=== PATIENT | female | born 1960 | race African-American/Black ===

== ENCOUNTER 2016-11-05 13:45 | Emergency (ER) | payer MEDICAID ==
[~2016-11-05] VITALS: Ht 162.6 cm; Wt 45.0 kg
[~2016-11-05 13:45] MED LIST: AMLO10TA80; LIDOCAINE HCL 1% 20ML VIAL (Pyxis) INJ ONE; LISI-604; MAPAP; SODIUM BICARBONATE 4.2% 5 MEQ/10 ML DISP.SYRIN IV ONE
[2016-11-05] MEDS ORDERED: FOLI-43 PO (14:03)
[2016-11-05] MEDS ORDERED: LACT10SO6 MT (14:03)
[2016-11-05] MEDS ORDERED: VITAMIN B 1 (14:03)
[2016-11-05] MEDS ORDERED: PENTOXIFYLLINE (14:03)
[2016-11-05 16:08] LABS: BASOPHILS % 0.8 % (0.0-2.0); EOSINOPHILS % 0.1 % (0.0-5.0); HEMATOCRIT. 33.2 % (36.0-48.0); HEMOGLOBIN. 10.9 g/dL (12.0-16.0); MEAN CORPUSCULAR HEMOGLOBIN 30.4 pg (28.0-32.0); MEAN CORPUSCULAR HGB CONC 32.8 g/dL (31.0-37.0); MEAN CORPUSCULAR VOLUME 92.8 fL (81.0-99.0); MEAN PLATELET VOLUME 8.6 fl (7.4-10.4); NEUTROPHILS % 75.1 % (40.0-76.0); PLATELET 160 x1000/uL (130-400); RED BLOOD CELL COUNT 3.58 mill/uL (4.2-5.4); RED CELL DISTRIBUTION WIDTH 15.2 % (11.6-14.6)
[2016-11-05 16:13] LABS: CHLORIDE 102 mEq/L (98-107); INDEX HEMOLYSI 1 (1-3); INDEX ICTERIC 2 (1-4); INDEX LIPEMIC 1 (1-3)
[2016-11-05 16:16] LABS: INR 1.8; PROTHROMBIN TIME 18.7 sec
[2016-11-05 16:21] LABS: ALANINE AMINOTRANSFERASE 25 IU/L (13-61); ALBUMIN 2.3 g/dL (3.4-5.0); ANION GAP 13; CALCIUM 8.4 mg/dL (8.5-10.1); CARBON DIOXIDE 29 mEq/L (21-32); UREA NITROGEN BLOOD 8 mg/dL (7-21); eGFR > 60 mL/min (>60)
[2016-11-05 18:25] VITALS: BP 120/68
== END 2016-11-05 19:25 | disposition home or self-care (01) ==
LOC: ER 13:45
DX: R18.8 Other ascites (principal); K72.90 Hepatic failure, unspecified without coma; I50.9 Heart failure, unspecified; K74.60 Unspecified cirrhosis of liver; F17.200 Nicotine dependence, unspecified, uncomplicated; I12.0 Hypertensive chronic kidney disease with stage 5 chronic kidney disease or end stage renal disease; N18.6 End stage renal disease
CPT/HCPCS: 36415; 49083; 80053; 85025; 85610; 99285; J3490; Z7610

== ENCOUNTER 2016-11-15 14:17 | Emergency (ER) | payer MEDICAID ==
[~2016-11-15] VITALS: Ht 162.6 cm; Wt 54.0 kg
[~2016-11-15 14:17] MED LIST changes: +FOLI-43 PO; +LACT10SO6 MT; -LIDOCAINE HCL 1% 20ML VIAL (Pyxis) INJ ONE; +PENTOXIFYLLINE; -SODIUM BICARBONATE 4.2% 5 MEQ/10 ML DISP.SYRIN IV ONE; +VITAMIN B 1
[2016-11-15] MEDS ORDERED: MORPHINE SULFATE 10 MG/ML CPJ IM ONE (16:45)
[2016-11-15 17:03] LABS: EOSINOPHILS % 0.2 % (0.0-5.0); HEMOGLOBIN. 11.4 g/dL (12.0-16.0); LYMPHOCYTES % 15.1 % (20.0-50.0); MEAN CORPUSCULAR HEMOGLOBIN 29.4 pg (28.0-32.0); MEAN CORPUSCULAR HGB CONC 32.6 g/dL (31.0-37.0); MEAN CORPUSCULAR VOLUME 90.3 fL (81.0-99.0); MONOCYTES % 7.3 % (2.0-8.0); NEUTROPHILS % 76.4 % (40.0-76.0); PLATELET 146 x1000/uL (130-400); RED BLOOD CELL COUNT 3.87 mill/uL (4.2-5.4); RED CELL DISTRIBUTION WIDTH 15.4 % (11.6-14.6); WHITE BLOOD COUNT 11.6 x1000/uL (4.5-11.0)
[2016-11-15 17:06] LABS: CHLORIDE 101 mEq/L (98-107); INDEX HEMOLYSI 1 (1-3); INDEX ICTERIC 2 (1-4); INDEX LIPEMIC 1 (1-3)
[2016-11-15 17:13] LABS: INR 1.5; PROTHROMBIN TIME 15.4 sec
[2016-11-15 17:14] LABS: ALANINE AMINOTRANSFERASE 26 IU/L (13-61); ALBUMIN 1.9 g/dL (3.4-5.0); ANION GAP 13; CALCIUM 8.3 mg/dL (8.5-10.1); CARBON DIOXIDE 26 mEq/L (21-32); ETHANOL BLOOD < 10 mg/dL; LIPASE 29 IU/L (73-393); UREA NITROGEN BLOOD 15 mg/dL (7-21); eGFR > 60 mL/min (>60)
[2016-11-15 20:21] VITALS: BP 104/74
== END 2016-11-15 20:27 | disposition home or self-care (01) ==
LOC: ER 14:18
DX: K70.31 Alcoholic cirrhosis of liver with ascites (principal); I50.9 Heart failure, unspecified; I10 Essential (primary) hypertension; F17.210 Nicotine dependence, cigarettes, uncomplicated
CPT/HCPCS: 36415; 49083; 80053; 83690; 85025; 85610; 96372; 99284; G0482; J2270; Z7610

== ENCOUNTER 2016-11-26 10:43 | Emergency (ER) | payer MEDICAID ==
[~2016-11-26] VITALS: Ht 162.6 cm; Wt 55.0 kg
[2016-11-26 12:34] LABS: ALBUMIN 1.8 g/dL (3.4-5.0); ANION GAP 14; CALCIUM 8.2 mg/dL (8.5-10.1); CARBON DIOXIDE 25 mEq/L (21-32); CHLORIDE 101 mEq/L (98-107); UREA NITROGEN BLOOD 16 mg/dL (7-21); eGFR 57 mL/min (>60)
[2016-11-26 12:35] LABS: ALANINE AMINOTRANSFERASE 23 IU/L (13-61); INDEX HEMOLYSI 2 (1-3); INDEX ICTERIC 2 (1-4); INDEX LIPEMIC 1 (1-3)
[2016-11-26 12:58] LABS: WHITE BLOOD COUNT 10.8 x1000/uL (4.5-11.0)
[2016-11-26 12:59] LABS: BASOPHILS % 0.5 % (0.0-2.0); EOSINOPHILS % 0.4 % (0.0-5.0); HEMATOCRIT. 32.8 % (36.0-48.0); HEMOGLOBIN. 10.7 g/dL (12.0-16.0); LYMPHOCYTES % 17.7 % (20.0-50.0); MEAN CORPUSCULAR HEMOGLOBIN 28.2 pg (28.0-32.0); MEAN CORPUSCULAR HGB CONC 32.6 g/dL (31.0-37.0); MEAN CORPUSCULAR VOLUME 86.6 fL (81.0-99.0); MEAN PLATELET VOLUME 8.3 fl (7.4-10.4); NEUTROPHILS % 73.4 % (40.0-76.0); PLATELET 133 x1000/uL (130-400); RED BLOOD CELL COUNT 3.79 mill/uL (4.2-5.4); RED CELL DISTRIBUTION WIDTH 15.3 % (11.6-14.6)
[2016-11-26 13:03] LABS: INR 1.5; PROTHROMBIN TIME 15.2 sec
[2016-11-26 16:30] VITALS: BP 101/62
[2016-11-26 18:57] LABS: BODY FLUID WBC 71 /cu mm (0-200)
[2016-11-26 19:05] LABS: BODY FLUID MONOCYTES 72 %
== END 2016-11-26 17:19 | disposition home or self-care (01) ==
LOC: ER 12:08
DX: R18.8 Other ascites (principal); K74.60 Unspecified cirrhosis of liver; E46 Unspecified protein-calorie malnutrition; K72.90 Hepatic failure, unspecified without coma; I11.0 Hypertensive heart disease with heart failure; I50.9 Heart failure, unspecified; F17.210 Nicotine dependence, cigarettes, uncomplicated; Z68.20 Body mass index [BMI] 20.0-20.9, adult; Z79.899 Other long term (current) drug therapy
CPT/HCPCS: 36415; 49083; 80053; 85025; 85610; 87070; 87075; 87205; 89050; 99285; Z7610

== ENCOUNTER 2016-12-20 11:50 | Emergency (ER) | payer MEDICAID ==
[~2016-12-20] VITALS: Ht 167.6 cm; Wt 87.0 kg
[~2016-12-20 11:50] MED LIST changes: -AMLO10TA80; +AMLO10TA80 PO; -PENTOXIFYLLINE; +PENTOXIFYLLINE PO
[2016-12-20 13:11] VITALS: BP 167/120
[2016-12-21] MEDS ORDERED: CARV3.1242 PO (11:06)
[2016-12-21] MEDS ORDERED: LISI-186 PO (11:06)
[2016-12-21] MEDS ORDERED: MIRT15TA6 PO (11:06)
== END 2016-12-20 21:30 | disposition left against medical advice (07) ==
LOC: ER 21:24
DX: R10.9 Unspecified abdominal pain (principal); Z53.21 Procedure and treatment not carried out due to patient leaving prior to being seen by health care provider